=== PATIENT | female | born 2005 | race African-American/Black ===

== ENCOUNTER 2024-07-21 14:22 | Outpatient (CLI) | payer OTHER, SELFPAY ==
--- NOTE | ~2024-07-21 | US_ITS ---
Pelvic ultrasound. Clinical History: Pelvic pain Technique: Realtime transabdominal and transvaginal scanning of the pelvis was performed. Color flow Doppler and Doppler spectral analysis were performed. Findings: The uterus is anteverted. The endometrial stripe has a thickness of 3 mm. No focal mass is identified. The right ovary measures 3.4 x 1.8 x 1.9 cm. No significant right ovarian or adnexal mass is seen. The left ovary measures 2.9 x 2.5 x 1.7 cm. No significant left ovarian or adnexal mass is seen. There is no evidence of free fluid in the cul de sac. Impression: No significant abnormality seen. Reviewed, dictated and finalized at location . Impression: No significant abnormality seen.
--- OUTSIDE RECORDS SUMMARY | 2024-07-21 14:41 | XMS_ITS | Clinical Summary ---
Author Organization [facility] Address [address] [place] [address] Care Team Providers Care Insurance Coder Name Role Phone Ester Veras MD Primary Care Provider [phone] Source Comments [facility],non-owned Affiliates and Associated Physician Practices is amultiple site organization consisting of ambulatory clinics and hospital sitesin [place], [place], [place] and [place]. This disclosure is being madepursuant to the Care Everywhere program and may not contain all information available regarding this patient. Last updated 17.[facility] Allergies Active Allergy Reactions Criticality Noted Date Comments Amoxicillin Shortness of Breath,Rash High 05/15/2016 Medications * Be aware that medications may not be up to date on this document. Always verify current medications with the patient. clindamycin (CLEOCIN) 1 % gel Apply to affected area 2 times daily as needed 0 04/04/2016 Active Active Problems Problem Noted Date Diagnosed Date Polycystic ovarian disease 05/15/2016 Overview (05/15/2016): Menarche ~ age 7 yr; menses occurred regularly until about age 8-1/2 yr when they stopped for several months. LMP Apr 10, 2016 (following manager grant appointment). Apr 04, 2016 - [facility] Testosterone 43 ng/dL, hemoglobin A1c 5.6%, insulin 59.5 uIU/mL (2.6-24.9), TSH 1.27 uIU/mL (0.45-4.50), free T4 (direct) 1.05 ng/dL (0.93-1.60), DHEA-S 272.6 ug/dL, HCG (quant) < 1 uIU/mL (<5), prolactin 8.7 ng/mL (4.8-23.3), 17-hydroxyprogesterone 41 ng/dL. Assessment & Plan (05/15/2016 4:40 PM CDT): Probable polycystic ovarian syndrome. 1. Reviewed laboratory studies, diagnosis, risk/benefits of treatment options (diet/exercise vs OCP's vs metformin), risks of developing diabetes mellitus with continued weight gain, importance of diet/exercise to lessen risks related to continued weight gain. 2. Referral to clinical slip cover estimator. 3. Fasting serum glucose in six months. 4. Referred to websites: [email or web address] and [employer] [email or web address][facility]gov 5. Return appointment as needed. 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 Gender Identity Not on file Sexual Orientation Not on file Last Filed Vital Signs Vital Sign Reading Time Taken Comments Blood Pressure 108/64 05/15/2016 3:44 PM CDT Pulse 76 05/15/2016 3:44 PM CDT Temperature - - Respiratory Rate 20 05/15/2016 3:44 PM CDT Oxygen Saturation - - Inhaled Oxygen Concentration - - Weight 100.2 kg (220 lb 14.4 oz) 05/15/2016 3:44 PM CDT Height 164.4 cm (5' 4.72) 05/15/2016 3:44 PM CD T Body Mass Index 37.07 05/15/2016 3:44 PM CDT Plan of Treatment Health Maintenance Due Date Last Done Comments HIV SCREENING 05/18/2018 HPV VACCINE (1 - 3-dose series) 05/18/2018 CHLAMYDIA/GONORRHEA SCREENING 2019 MENINGOCOCCAL (Group B) VACC INE SHARED DECISION-MAKING (1 of 2 - Standard) 2019 HEPATITIS C SCREENING 05/14/2021 DTAP/TDAP/TD VACCINES (1 - Tdap) 05/18/2022 HEPATITIS B VACCINE (1 of 3 - 19+ 3-dose series) 05/18/2022 COVID-19 VACCINE (2023-2 5 season) 2023 DEPRESSION SCREENING 02/20/2024 INFLUENZA VACCINE (Season Ended) 2024 ZOSTER VACCINE (1 of 2) 05/18/2053 HIB VACCINE Aged Out No longer eligi ble based on patient's age to complete this topic MENINGOCOCCAL GROUPS A/C/Y/W VACCINE Aged Out No longer eligible b ased on patient's age to complete this topic PNEUMOCOCCAL VACCINE Aged Out No long er eligible based on patient's age to complete this topic Insurance [facility] [place] Address: [facility] [id number] [place] [address] Care Teams Insurance Coder Relationship Specialty Start Date End Date Ester Veras MD [address] [facility] [address] [place] [address] PCP - General Obstetrics and Gynecology 04/19/16
== END 2024-07-21 14:23 | disposition home or self-care (01) ==
PROVIDERS: Visit Provider Obstetrics & Gynecology Gynecology
DX: R10.2 Pelvic and perineal pain (principal)
CPT/HCPCS: 76830; 76856

== ENCOUNTER 2025-02-04 17:14 | Emergency (ER) | payer OTHER, SELFPAY ==
--- NOTE | ~2025-02-04 | XR_ITS ---
XR ankle RT 2V INDICATION: pain / fall . COMPARISON: None. FINDINGS: AP and lateral views of the right ankle demonstrate no acute fracture or dislocation. The ankle mortise is intact. There is no soft tissue swelling. No radiopaque foreign body is seen. IMPRESSION: No acute fracture or dislocation is noted in the right ankle. Reviewed, dictated and finalized at location S. BACKER
[2025-02-04 17:45] VITALS: BP 148/81; PULSE 84; RESP 16; TEMP 37.2; O2SAT 97
--- OUTSIDE RECORDS SUMMARY | 2025-02-04 18:34 | XMS_ITS | Data Portability ---
Author Organization [facility] [employer], Main Office Address [address] [place] [address] Assessment No assessment recorded. Plan of Treatment Reminders Order Date Submit Date Provider Last Modified By Organization Details Last Modified Time Details Appointments None recorded. Lab insulin, free + total, serum 2024 025 [facility] (Lab), [address] [place], [address], 5 09:13:56 glycohemogl obin, total, blood 2024 025 [facility] (Lab), [address] [place], [address], 5 00:27:48 vitamin B12 + folate, serum or blood 2024 025 [facility] (Lab), [address] [place], [address], 5 00:27:48 TSH, serum or plasma 2024 025 [facility] (Lab), [address] [place], [address], 5 00:27:48 Referral None recorded. Procedures None recorded. Surgeries None recorded. Imaging None recorded. Medication Orders ergocalcife rol (vitamin D2) 1,250 mcg (50,000 unit) capsule 2024 025 [facility][id number], [address] [place], [address], 10:33:04 Trulicity 0.75 mg/0.5 mL subcutaneou s pen injector 2024 025 [facility][id number], [address] [place], [address], 10:33:04 Patient TargetsNo targets recorded. Patient InstructionsNo instructions recorded. Reason for Referral None Reported. Results Created Date Observation Date Name Description Value Unit Range Abnormal Flag Note LastModifiedBy Organization Detail LastModifiedTime 07/23/1907/21/2024 , bridgette montaño observ ation record ed. [address], [place], [address], 07/23/2024 12:12:27 Result Notes None recorded. Problems Name Problem SNOMED Code Status Onset Date Resolution Date Notes Provider Name and Address Organization Details Recorded Time Abnormal weight 21640714 Active 2024 Gillian Ricketts RN null, [employer] 10:06:38 Metabolic syndrome X 670217028 Active 2024 LAUREN Snyder [address], [address], [employer] 5 10:26:15 Vitamin D deficiency 47456860 Active 2024 LAUREN Snyder [address], [place], [address], [employer] 5 10:27:59 Obese class I 1144108383885 07 Active 2024 LAUREN Snyder [address], [place], [address], [employer] 5 10:31:16 Polycystic ovary syndrome 164535668 Active 2024 LAUREN Snyder [address], [place], [address], [facility] [employer] [facility] 10:31:42 Fatigue 86295238 Active 2024 LAUREN Snyder [address], [place], [address], [facility] [employer] [facility] 10:32:45 Problem Notes None recorded. Medical Equipment None Reported. Allergies Allergen ID Allergen Name Allergen Category Reaction Reaction Severity Criticality Documentation Date Start Date Code Code System Note Provider Name and Address Organization Details Recorded Time 90392 amoxicill in medicatio n Not available Not available Not available 07/23/2024 723 RxNorm Gillian Ricketts RN [facility], [facility] [employer] [facility] 10:09:05 Medications Name Sig Start Date Stop Date Status Note LastModified by Organization Details LastModified Time spironolact one 100 mg tablet TAKE 1 TABLET BY MOUTH EVERY DAY active Not Available Not Available No t Available terconazole 0.8 % vaginal cream INSERT 1 APPLICATO R VAGINALLY EVERY NIGHT AT BEDTIME FOR 3 NIGHTS 07/23 completed Not Available Not Available Not Available metronidazo le 500 mg tablet TAKE 1 TABLET 3 TIMES A DAY UNTIL FINISHED 07/23 completed Not Available Not Available Not Available sulfamethox azole 800 mg-trimetho prim 160 mg tablet TAKE 1 TABLET BY MOUTH EVERY 12 HOURS 07/23 completed Not Available Not Available Not Available ergocalcife rol (vitamin D2) 1,250 mcg (50,000 unit) capsule TAKE 1 CAPSULE WEEKLY BY MOUTH DIRECTED FOR 28 DAYS 2024 active Not Available Not Available Not Avai lable loteprednol etabonate 0.5 % eye drops,suspe nsion INSTILL 1 DROP INTO BOTH EYES 4 TIMES A DAY 07/23 completed Not Available Not Available Not Available (28) 1.5 mg-30 mcg (21)/75 mg (7) tablet TAKE 1 TABLET BY MOUTH EVERY DAY active Not Available Not Available No t Available Vestura (28) 3 mg-0.02 mg tablet TAKE 1 TABLET BY MOUTH EVERY DAY 07/23 completed Not Available Not Available Not Available Trulicity 0.75 mg/0.5 mL subcutaneou s pen injector active Not Available Not Available Not Available Aurovela Fe 1-20 (28) 1 mg-20 mcg (21)/75 mg (7) tablet TAKE 1 TABLET BY MOUTH EVERY DAY 07/23 completed Not Available Not Available Not Available Vitals Date Recorded Body weight Body mass index (BMI) Body height Body temperature Heart rate Respiratory rate Oxygen saturation Pain severity - 0-10 verbal numeric rating [Score] - Reported Systolic And Diastolic Provider Name and Address Organization Details Last Updated DateTime 97282.6 7 g 34.5 kg/m2 165.1 cm 97 [degF] 103 /min 20 /min 99 % 0 148/88 mm[Hg] Gillian Ricketts RN [facility] [employer] 10:12:41 Social History Question Answer Notes LastModified by Organizat ion Details LastModified Time Tobacco Smoking Status Never Smoker Gillian Ricketts RN [facility], [employer] [facility] [employer] 07/23/2024 10:13:45 What Is Your Level Of Caffeine Consumption? Moderate Information not available 07/23/2024 In The 14 Days Before Symptom Onset, Have You Had Close Contact With A Laboratory-confir med COVID-19 While That Case Was Ill? No Information not available 07/23/2024 In The 14 Days Before Symptom Onset, Have You Had Close Contact With A Person Who Is Under Investigation For COVID-19 While That Person Was Ill? No Information not available 07/23/2024 What Type Of Diet Are You Following? REGULAR Information not available 07/23/2024 Which Illicit Or Recreational Drugs Have You Used? MJ Information not available 07/23/2024 How Many Days Of Moderate To Strenuous Exercise, Like A Brisk Walk, Did You Do In The Last 7 Days? 3 Information not available 07/23/2024 On Those Days That You Engage In Moderate To Strenuous Exercise, How Many Minutes, On Average, Do You Exercise? 60 Information not available 07/23/2024 Have There Been Any Changes To Your Family Or Social Situation? No Information no t available 07/23/2024 Are There Any Guns Present In Your Home? No Information not available 07/23/2024 How Many Years Have You Used Illicit Or Recreational Drugs? 2 Information not available 07/23/2024 Do You Use Insect Repellent Routinely? Yes Information not available 07/23/2024 Where Do You Live? [place]iler Information not available 07/23/2024 How Many Children Do You Have? 0 Information not available 07/23/2024 Do You Have Any Pets? Yes Information not available 07/23/2024 What Is Your Relationship Status? Single Information not available 07/23/2024 Do You Use Your Seat Belt Or Car Seat Routinely? Yes Information not available 07/23/2024 Do You Have Smoke And Carbon Monoxide Detectors In Your Home? Yes Information not available 07/23/2024 Are You Passively Exposed To Smoke? No Information no t available 07/23/2024 Are There Any Smokers In Your House? No Information not available 07/23/2024 Do You Participate In Social Media? Yes Information not available 07/23/2024 What Types Of Sporting Activities Do You Participate In? Strength Training Information not available 07/23/2024 Have You Recently Traveled Abroad? No Information not available 07/23/2024 Are You Currently In School? Yes Saffell Information not available 07/23/2024 Sex: Unknown Functional Status Question Answer Note LastModified by Organizat ion Details LastModified Time Do you use any illicit or recreational drugs? Yes Information not available 07/23/2024 What is your level of alcohol consumption? Occasional Information not available 07/23/2024 Are you currently employed? No Information not available 07/23/2024 What is your exercise level? Moderate Information not available 07/23/2024 Mental Status Question Answer Note LastModified by Organization D etails LastModified Time Do you feel stressed (tense, restless, nervous, or anxious, or unable to sleep at night)? [id number] Information not available 07/23/2024 Family History Relationship Description Onset Age of this Age Resolved Age Notes LastModified by Organization Details LastModified Time Father Diabetes mellitus Not available 2024 10:10:19 Paternal Grandmother Diabetes mellitus Not available 2024 10:10:19 Medical History Condition Response OTHER # 1 Y HYPERTENSION Y Gynecological History Statement/Question Response STIs/STDs N Duration of Flow (days) 3 Flow Light Date of LMP 07/06/2024 Frequency of Cycle (Q days) 28 Sexually Active? Y Obstetrics History GPAL:G 0 P 0 0 0 0 Immunizations Vaccine Type Date Status Note Provider Deo latif and Address Organization Details Recorded Time Tdap 07/23/2024 completed Gillian Ricketts RN [facility], [facility] [employer] [facility] 07/23/2024 11:30:46 Past Encounters Encounter ID Performer Location Encounter Start Date Encounter Closed Date Diagnosis/Indication Diagnosis SNOMED-CT Code Diagnosis ICD10 Code Diagnosis IMO Codes Diagnosis Note [id number] LAUREN Snyder S[facility] [address] [address] 07/23/2024 09:46:41 07/23/2024 10:49:54 Physical examination 7778267 Z00.00 871531 Patient is overall [facility]a [facility] reviewedDi scussed diet and exercisePa tient questions answered Metabolic syndrome X 237 135787 E88.212 5043362 Diagnosed by Gyne, last insulin level was 34. Will recheck today Vitamin D deficiency 347 91121 E55.9 17677 Diagnosed by gyne Administra tion of tetanus vaccine 926294503 Z23 Obese class I 6497386381 21853 E66.842 2360191 Would like a GLP-1 Polycystic ovary syndrome 372934808 E28.2 643544 Diagnosed at the age of 10, she has taken metformin and spirinolac tone Fatigue 18306598 R53.83 61979167 [facility] Concerns Section Related Observation LastModified by Organization Detai ls LastModified Time None Recorded Concern Status LastModified by Organization Details LastModified Time None Recorded Advance Directives Directive None Recorded Payers Insurance Date Sequence Insurance Name Policy Number Policy Ga Covered Member ID Ga Member ID Guarantor Name 09/23/2024 1 [facility] (MEDICAID HMO) [id number] Avtar Payne [id number] Avtar Payne Notes Date Note Type Note Provider Name and Address Organization Details Recorded Time 5 text/html Avtar Payne is a 19 year old female patient here today to establish care. She has a history of PCOS. Her last labs were in April. This has been managed by Dr. Veras's office.She did take metformin for 3 years but feels this caused her to feel poorly. She is currently taking spironolactone 100 mg daily for her testosterone levels. She is also taking combo control. Her biggest concerns are fatigue, hyperpigmentation, abnormal menses, generalize malaise following eating, sleep disturbances. She does have insulin resistance. Flu shot: declinesCOVID vaccines: x3Tdap: 07/23/24WWE: 07/2024Mammogram not indicatedColonoscopy not indicated LAUREN Snyder [address] [facility] [facility] [address] [place], [address], [facility] 07/23/2024 11:40:06 OBGyn Episode No OBEpisode recorded.
--- OUTSIDE RECORDS SUMMARY | 2025-02-04 18:34 | XMS_ITS | Clinical Summary ---
Author Organization [facility] Address [address] [place] [address] Care Team Providers Care Cutter Head Sharpener Name Role Phone Ester Veras MD Primary Care Provider [phone] [phone] Source Comments [facility],non-owned Affiliates and Associated Physician Practices is amultiple site organization consisting of ambulatory clinics and hospital sitesin [place], [place], [place] and [place]. This disclosure is being madepursuant to the Care Everywhere program and may not contain all information available regarding this patient. Last updated 17.[facility] Allergies Active Allergy Reactions Criticality Noted Date Comments Amoxicillin Shortness of Breath,Rash High 05/15/2016 Medications * Be aware that medications may not be up to date on this document. Alwaysverify current medications with the patient. clindamycin (CLEOCIN) 1 % gel Apply to affected area 2 times daily as needed 0 04/04/2016 Active Active Problems Problem Noted Date Diagnosed Date Polycystic ovarian disease 05/15/2016 Overview (05/15/2016): Menarche ~ age 7 yr; menses occurred regularly until about age 8-1/2 yr when they stopped for several months. LMP Apr 10, 2016 (following private household worker appointment). Apr 04, 2016 - [facility] Testosterone [...] continued weight gain. 2. Referral to clinical desulfurizer operator. 3. Fasting serum glucose in six months. 4. Referred to websites: [email or web address] and [email or web address] 5. Return appointment as needed. 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 Address: [facility] [address] [place] [address] Care Teams Cutter Head Sharpener Relationship Specialty Start Date End Date Ester Veras MD [address] [facility] [address] [place] [address] PCP - General Obstetrics and Gynecology 04/19/16
[2025-02-04 22:43] VITALS: BP 144/70; PULSE 76; RESP 16; TEMP 36.4; O2SAT 98
[2025-02-04] MEDS: KETOROLAC 30 MG/ML VIAL (*BKC) IM (22:45)
[2025-02-04] MEDS: ACETAMINOPHEN 500 MG TABLET 1000 MG PO (22:45)
--- NOTE | 2025-02-05 02:07 | ED_ITS ---
HPI - General Adult General Chief complaint: Extremity Injury, Lower Stated complaint: R ankle pain Time Seen by Provider: 02/04/25 21:00 History of Present Illness HPI narrative: 19-year-old female presenting after a right ankle injury after she stepped off her front porch wrong causing her ankle to invert. She states that she heard multiple pops. She is able to put pressure but notes that it is hard to. Denies numbness/tingling. Neurovascular intact Related Data Allergies Allergy/AdvReac Type Severity Reaction Status Date / Time amoxicillin Allergy Unknown Verified 11/17/14 08:00 Review of Systems Review of Systems: All systems reviewed & are unremarkable except as noted in HPI and below PMFSH Family History Family History (Updated 09/17/15 @ 23:19 by DOCTOR UNKNOWN) Grandparent Family history of hypothyroidism Father Family history of diabetes mellitus in first degree relative Social History Social History Smoking status: Never smoker Second hand tobacco smoke exposure: No Exam Narrative: GENERAL: Well-appearing, well-nourished, and in no acute distress. HEAD: Normocephalic, atraumatic. EYES: PERRLA and EOMI. ENT: Nares clear, no rhinorrhea or epistaxis. Mucous membranes moist. Oropharynx without tonsillar hypertrophy exudate or other lesions. Bilateral TMs pearly joseph non-bulging NECK: Supple. No adenopathy or masses. No carotid bruits or JVD CHEST: Clear to auscultation. No respiratory distress. No wheezes rales or rhonchi HEART: Regular rate and rhythm. No murmur heard. Normal peripheral pulses. ABDOMEN: Soft, nontender, nondistended, normal active bowel sounds. EXTREMITIES: R lateral ankle swelling without bruising. ROM limited due to pain. 5/5 strength. Neurovascular intact. SKIN: Warm, dry, no rash. NEURO: No focal deficits. Alert and oriented x3. PSYCH: Normal mood and affect Course Vital Signs Vital signs: Vital Signs Temperature 99 F 02/04/25 17:45 Pulse Rate 84 02/04/25 17:45 Respiratory Rate 16 02/04/25 17:45 Blood Pressure 148/81 H 02/04/25 17:45 Pulse Oximetry 97 02/04/25 17:45 Oxygen Delivery Room Air 02/04/25 17:45 Temperature 97.6 F 02/04/25 22:43 Pulse Rate 76 02/04/25 22:43 Respiratory Rate 16 02/04/25 22:43 Blood Pressure 144/70 H 02/04/25 22:43 Pulse Oximetry 98 02/04/25 22:43 Oxygen Delivery Room Air 02/04/25 17:45 MDM MDM Narrative Medical decision making narrative: Patient presents with right ankle pain after injury. Exam notable for tenderness and soft tissue swelling without deformity. Neurovascular status int act. Given mechanism of injury and exam findings, imaging obtained and x-ray negative for acute fracture or dislocation. Presentation consistent with ankle sprain. Patient given an DRAKE wrap, crutches, Tylenol, and Toradol. Advised supportive care including rest, ice, compression, elevation, and Tylenol/anti- inflammatories as needed for pain. Patient able to ambulate with support. Discharged with return precautions and outpatient follow-up. Differential Diagnosis Differential Diagnosis: Differential diagnostic considerations for lower extremity injury include ankle sprain/strain, acute internal derangement of knee, fracture of femur, fracture of hip, puncture wound of foot, fracture of toe, fracture of ankle, tendon rupture (achilles/patellar/quadriceps). Imaging Data Attestation: I personally reviewed and interpreted this imaging study as follows: Radiologist's impression: ITS Impressions Ankle X-Ray 02/04/25 19:57 IMPRESSION: No acute fracture or dislocation is noted in the right ankle. Discharge Plan Discharge Clinical Impression: Ankle sprain and strain Patient Disposition: Home Condition: Stable Instructions: Ankle Sprain (ED) Additional Instructions: Return to the ER if you experience fever, redness and swelling of your extremity, numbness or any other symptoms that are concerning to you Wear DRAKE wrap and use crutches. Weight-bearing as tolerated. Ice and elevate extremity. Take anti-inflammatories (Aleve, Ibuprofen, Naproxen, etc) and Tylenol as needed for pain. Follow up with your doctor for further care. If symptoms persist, orthopedic referral provided for further imaging. Patient Language: Turkmen Follow-up/Referrals: Jayme Lomas MD [Physician, Orthopedics] Moni,Simin Viveros APRN [Primary Care Provider, Unknown]
== END 2025-02-04 23:00 | disposition home or self-care (01) ==
DX: S93.401A Sprain of unspecified ligament of right ankle, initial encounter (principal); S96.911A Strain of unspecified muscle and tendon at ankle and foot level, right foot, initial encounter; X58.XXXA Exposure to other specified factors, initial encounter
CPT/HCPCS: 73600; 96372; 99283; A9270; J1885